=== PATIENT | male | born 1990 | race African-American/Black ===

== ENCOUNTER 2021-04-27 00:04 | Emergency (ER) | payer OTHER ==
[~2021-04-27 00:04] MED LIST: ENSURE ORIGINA237 ML PO; FEOSOL325 MG PO; FERROUS SULFAT325 M2 PO; FLAGYL500 MG PO; HUMIRA40 MG/0.4 SQ; K-DUR TAB 20 M20 MEQ PO; LEVAQUIN500 MG PO; PREDNISONE; PREDNISONE10 MG PO
== END 2021-04-27 02:45 | disposition home or self-care (01) ==
LOC: ER1 00:04
DX: S93.402A Sprain of unspecified ligament of left ankle, initial encounter (principal); F17.200 Nicotine dependence, unspecified, uncomplicated; D64.9 Anemia, unspecified; X50.1XXA Overexertion from prolonged static or awkward postures, initial encounter; Y92.009 Unspecified place in unspecified non-institutional (private) residence as the place of occurrence of the external cause
CPT/HCPCS: 73610; 99283

== ENCOUNTER 2021-07-18 23:29 | Inpatient (IN) | payer OTHER ==
[~2021-07-18] VITALS: Ht 175.3 cm; Wt 49.9 kg
[2021-07-19 00:54] LABS: BUN/CREATININE RATIO 8 (0-10)
[2021-07-19 02:05] LABS: HEMOGLOBIN 4.5 gm/dl (14.0-17.5)
[2021-07-19 02:08] LABS: RED BLOOD COUNT 3.74 M/UL (4.20-5.50)
[2021-07-20 07:32] LABS: HEMOGLOBIN 9.5 gm/dl (14.0-17.5)
[2021-07-20 07:42] LABS: RED BLOOD COUNT 5.31 M/UL (4.20-5.50); WHITE BLOOD COUNT 5.7 K/UL (4.5-11.0)
[2021-07-20 08:09] LABS: BUN/CREATININE RATIO 7 (0-10)
[2021-07-22 08:17] LABS: HEMOGLOBIN 9.1 gm/dl (14.0-17.5); RED BLOOD COUNT 5.13 M/UL (4.20-5.50)
[2021-07-22 08:23] LABS: WHITE BLOOD COUNT 10.3 K/UL (4.5-11.0)
[2021-07-22 08:41] LABS: BUN/CREATININE RATIO 23 (0-10)
[2021-07-23] MEDS ORDERED: FERROUS SULFAT325 M2 PO (12:03)
[2021-07-23] MEDS ORDERED: PREDNISONE 10 M10 MG PO (12:03)
== END 2021-07-23 20:09 | disposition home or self-care (01) | DRG 385 ==
LOC: ER1 23:29 → CDU 07-19 04:11 → MED SURG 4 07-19 04:11
PROVIDERS: Emergency Medicine; Physician Assistant; ADMIT Internal Medicine
PROC: 30233N1 Transfusion of Nonautologous Red Blood Cells into Peripheral Vein, Percutaneous Approach (ICD-10-PCS; principal; 2021-07-19)
DX: K50.911 Crohn's disease, unspecified, with rectal bleeding (principal); E43 Unspecified severe protein-calorie malnutrition; D62 Acute posthemorrhagic anemia; Z68.1 Body mass index [BMI] 19.9 or less, adult; Z20.822 Contact with and (suspected) exposure to COVID-19; F17.210 Nicotine dependence, cigarettes, uncomplicated; E86.0 Dehydration; F12.10 Cannabis abuse, uncomplicated; E87.6 Hypokalemia; F19.10 Other psychoactive substance abuse, uncomplicated; Z91.14 Patient's other noncompliance with medication regimen; Z59.00 Homelessness unspecified
CPT/HCPCS: 36415; 36430; 80048; 80053; 82270; 82607; 82728; 83540; 83550; 83605; 83690; 83735; 84439; 84443; 85018; 85025; 85027; 85652; 86140; 86850; 86900; 86901; 86920; 99285; C9113; J1335; J1956; J2920; J3480; P9016; Q9967; U0002

== ENCOUNTER 2021-10-29 12:39 | Emergency (ER) | payer OTHER ==
[~2021-10-29 12:39] MED LIST changes: +PREDNISONE 10 M10 MG PO
[2021-10-29 13:23] LABS: RED BLOOD COUNT 4.43 M/UL (4.20-5.50); WHITE BLOOD COUNT 7.1 K/UL (4.5-11.0)
[2021-10-29 13:32] LABS: HEMOGLOBIN 6.1 gm/dl (14.0-17.5)
[2021-10-29 13:48] LABS: BUN/CREATININE RATIO 11 (0-10)
[2021-10-30 04:46] LABS: HEMOGLOBIN 8.1 gm/dl (14.0-17.5)
== END 2021-10-30 09:00 | disposition short-term general hospital (02) ==
LOC: ER1 12:39
PROVIDERS: Emergency Medicine; Student in an Organized Health Care Education/Training Program
DX: K50.90 Crohn's disease, unspecified, without complications (principal); D64.9 Anemia, unspecified; Z20.822 Contact with and (suspected) exposure to COVID-19
CPT/HCPCS: 36430; 80053; 82270; 82550; 82553; 82607; 82728; 82746; 83540; 83550; 84484; 85014; 85018; 85025; 85045; 85610; 85730; 86850; 86900; 86901; 86920; 93005; 99284; P9016; U0002

== ENCOUNTER → 2021-12-31 | Outpatient (CLI) | payer OTHER ==
[~2021-12-31] VITALS: Ht 185.4 cm; Wt 79.4 kg
== END ==
LOC: OPSV 10:00
DX: K50.811 Crohn's disease of both small and large intestine with rectal bleeding (principal)
CPT/HCPCS: 96375; 96413; 96415; J1720; J7050; Q5103

== ENCOUNTER → 2022-01-14 | Outpatient (CLI) | payer OTHER ==
[~2022-01-14] VITALS: Ht 185.4 cm; Wt 79.4 kg
== END ==
LOC: OPSV 10:00
DX: K50.811 Crohn's disease of both small and large intestine with rectal bleeding (principal)
CPT/HCPCS: 96375; 96413; 96415; J1720; J7050; Q5103

== ENCOUNTER → 2022-03-13 | Outpatient (CLI) | payer OTHER ==
[~2022-03-13] VITALS: Ht 185.4 cm; Wt 79.4 kg
== END ==
LOC: OPSV 11:06
DX: K50.811 Crohn's disease of both small and large intestine with rectal bleeding (principal)
CPT/HCPCS: 96375; 96413; 96415; J1720; J7050; Q5103